=== PATIENT | male | born 1990 | race Caucasian/White ===

== ENCOUNTER 2023-09-23 11:07 | Emergency (ER) | payer OTHER, BC, SELFPAY ==
[2023-09-23 11:07] VITALS: BP 143/92; PULSE 86; RESP 16; TEMP 37.1; O2SAT 98; BMI 30.6
--- NOTE | 2023-09-23 11:24 | EDS_ITS ---
HPI <GINGER Rosaels - Last Filed: 09/23/23 12:47> History of Present Illness Chief Complaint: Lower Extremity Injury Narrative Narrative: 32-year-old male was working on a roof when fell onto his right leg while still on the roof. He was able to get down and is ambulatory. He reports pain in his dickey and foot and the lateral lower leg feels tingly. No head injury or LOC. PFSH <GINGER Rosales - Last Filed: 09/23/23 12:47> PFSH Medical History no medical history Home Medications ?Medication ?Instructions ?Recorded ?Last Taken ?Type NK 09/23/23 Unknown History Allergy/AdvReac Type Severity Reaction Status Date / Time No Known Allergies Allergy Verified 09/23/23 11:07 Surgical History (Updated 09/23/23 @ 11:16 by Rylee Bernardo) H/O vasectomy [place] teeth extracted Social History Smoking Status: Current every day smoker tobacco type: cigarettes ROS <GINGER Rosales Last Filed: 09/23/23 12:47> ROS ED ROS Narrative Neuro: Negative for motor/sensory dysfunction. Skin: Negative for wound. Musc: Positive for right leg pain, trauma. EXAM <GINGER Rosales Last Filed: 09/23/23 12:47> Physical Exam Narrative Exam Narrative: CONST: Patient sitting in no acute distress. EYES: Normal inspection. NECK: Normal inspection. RESP: No respiratory distress, CTAB. CVS: Regular rate and rhythm, no murmur, no gallop. SKIN: Color normal, no rash, warm, dry, intact. EXTREMITIES: Full ROM upper extremities, nontender, 2+ radial pulses. Left leg nontender. Superficial abrasion right leg inferior to patella. No tenderness of hip or knee, tender over the proximal and mid lateral fibula. Slight tenderness of right lateral ankle and proximal fifth metatarsal tarsal. No deformity or crepitus. Full range of motion of all joints, 2+ DP pulses. NEURO: Alert and answering questions appropriately. PSYCH: Normal affect. Const Vital Signs: 09/23/23 11:07 09/23/23 12:45 Temperature 98.7 F 98.4 F Temperature Source Temporal Pulse Rate 86 84 Respiratory Rate 16 16 Blood Pressure 143/92 H 145/88 H Blood Pressure Mean 109 107 Pulse Ox 98 98 Oxygen Delivery Method Room Air <Dr. Michael Almanzar DO - Last Filed: 09/23/23 15:42> Physical Exam Const Vital Signs: 09/23/23 11:07 09/23/23 12:45 Temperature 98.7 F 98.4 F Temperature Source Temporal Pulse Rate 86 84 Respiratory Rate 16 16 Blood Pressure 143/92 H 145/88 H Blood Pressure Mean 109 107 Pulse Ox 98 98 Oxygen Delivery Method Room Air MDM <GINGER Rosales - Last Filed: 09/23/23 12:47> [facility] Narrative Medical decision making narrative: Patient slipped while working on a roof and fell on the roof surface injuring his right lateral lower leg. He is tender over the upper fibula and lateral foot. No deformity or crepitus. He reports tingling in the peroneal nerve distribution and is neurovascularly intact and ambulatory. X-ray shows no acute findings. I recommended ice and [id number] analgesia and he can return to work with no restrictions. He was discharged in stable condition. Radiography Diagnostic Testing: Clinical Impression(s) from Imaging Studies Foot X-Ray 09/23/23 11:33 IMPRESSION: Normal x-ray examination of the foot. Electronically Signed: Clayton Allan MD at 12:12 EDT , Tibia/Fibula X-Ray 09/23/23 11:33 IMPRESSION: Normal x-ray examination of the tibia and fibula. Electronically Signed: Clayton Allan MD at 12:12 EDT , ED attending interpretation of right tibia/fibula shows no fracture or dislocation. ED attending interpretation of right foot shows no fracture or dislocation. <Dr. Michael Almanzar DO - Last Filed: 09/23/23 15:42> [facility] Narrative Medical decision making narrative: Patient slipped while working on a roof and fell on the roof surface injuring his right lateral lower leg. He is tender over the upper fibula and lateral foot. No deformity or crepitus. He reports tingling in the peroneal nerve distribution and is neurovascularly intact and ambulatory. X-ray shows no acute findings. I recommended ice and [id number] analgesia and he can return to work with no restrictions. He was discharged in stable condition. This patient was seen with a PA/[employer] Individually assessed they patient including history and physical. I have reviewed everything on the chart that is available and agree with the documentation provided by the PA/[employer] including discussion about the assessment, treatment plan, discussion, and return precautions. Patient presented for right leg pain after a fall. 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 He states he has had this before because he is at [employer] and it feels the same. He does not want any analgesia. He obtained x-rays of the tib-fib and foot on the right in my interpretation is all negative. Patient states he does not want a work note and he wants to go back to work without any restrictions. Impression: 1. Mechanical fall 2. Right leg contusion 3. Chronic Radiography Diagnostic Testing: Clinical Impression(s) from Imaging Studies Foot X-Ray 09/23/23 11:33 IMPRESSION: Normal x-ray examination of the foot. Electronically Signed: Clayton Allan MD at 12:12 EDT , Tibia/Fibula X-Ray 09/23/23 11:33 IMPRESSION: Normal x-ray examination of the tibia and fibula. Electronically Signed: Clayton Allan MD at 12:12 EDT , Discharge Plan Triage Chief Complaint: Lower Extremity Injury ED Midlevel Provider: Yakelin Sarkar ED Provider: Michael Almanzar Dx/Rx/DC Orders Clinical Impression: Contusion of leg, right, Fall, Right peroneal nerve palsy Instructions: ED Contusion, Lower Extremity Prescriptions: No Action NK Primary Care Provider: Care Physician,No Primary Referrals: [facility] Doctor,Out of [Non-Staff] - Activity Restrictions/Additional Instructions: Ice and take Tylenol or ibuprofen as needed for pain. You can return to work without restrictions. Print Language: Nepalese Disposition Disposition: Home, Self Care Discharge Date/Time: 09/23/23 12:46
--- NOTE | 2023-09-23 11:33 | RAD_ITS ---
STUDY: X-RAY - RIGHT FOOT CLINICAL: Male, 32 years old. Pain following a fall. TECHNIQUE: 3 view(s) of the foot. COMPARISON: None. FINDINGS: Normal talus, calcaneus, and tarsal bones. Normal visualized subtalar, talonavicular, calcaneocuboid, tarsal and tarsometatarsal articulations. There is a talar beak. This is a normal variant. Normal metatarsi. Normal metatarsophalangeal joint of the great toe. There is a bipartite tibial sesamoid. Normal interphalangeal joint of the great toe. Normal phalanges of the great toe. Normal second through fifth metatarsophalangeal joints. Normal interphalangeal joints and phalanges of the lesser toes. The soft tissue structures are unremarkable. RAD/Foot min 3 Views IMPRESSION: Normal x-ray examination of the foot. Electronically Signed: Clayton Allan MD at 12:12 EDT ,
--- NOTE | 2023-09-23 11:33 | RAD_ITS ---
STUDY: X-RAY - RIGHT TIBIA AND FIBULA REASON FOR EXAM: Male, 32 years old. pain TECHNIQUE: 2 view(s) of the tibia and fibula were obtained. COMPARISON: None. FINDINGS: Normal visualized tibia. Normal visualized fibula. The soft tissue structures are unremarkable. RAD/Tibia & Fibula 2 Views IMPRESSION: Normal x-ray examination of the tibia and fibula. Electronically Signed: Clayotn Allan MD at 12:12 EDT ,
[2023-09-23 12:45] VITALS: BP 145/88; PULSE 84; RESP 16; TEMP 36.9; O2SAT 98
== END 2023-09-23 12:46 | disposition home or self-care (01) ==
PROVIDERS: Emergency Provider Student in an Organized Health Care Education/Training Program; Visit Provider Student in an Organized Health Care Education/Training Program
DX: S80.11XA Contusion of right lower leg, initial encounter (principal); G57.31 Lesion of lateral popliteal nerve, right lower limb; F17.210 Nicotine dependence, cigarettes, uncomplicated; Y99.0 Civilian activity done for income or pay; W18.30XA Fall on same level, unspecified, initial encounter; Y92.89 Other specified places as the place of occurrence of the external cause; Z98.52 Vasectomy status
CPT/HCPCS: 73590; 73630; 99282